=== PATIENT | male | born 1990 | race Caucasian/White ===

== ENCOUNTER 2019-11-02 18:02 | Emergency (ER) | payer SELFPAY ==
[~2019-11-02] VITALS: Ht 167.6 cm; Wt 79.4 kg
[2019-11-02] MEDS ORDERED: ACETAMINOPHEN EXTRA STRENGTH 500 MG TAB PO ONE (18:05)
[2019-11-02 18:08] VITALS: BP 132/80
--- NOTE | 2019-11-02 18:15 | NUR ---
DR. BOO EVALUATING PT
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
--- NOTE | 2019-11-02 18:24 | NUR ---
Patient discharged with v/s stable. Written and verbal after care instructions given and explained. Patient verbalized understanding. PT D/C WITH [facility] in custody. All questions addressed prior to discharge. Advised to follow up with PMD.
[2019-11-02 18:25] VITALS: BP 132/80
== END 2019-11-02 18:24 ==
LOC: MED 18:02
DX: R51 Headache (principal); Z02.89 Encounter for other administrative examinations; V49.9XXA Car occupant (driver) (passenger) injured in unspecified traffic accident, initial encounter; Y93.89 Activity, other specified; Y92.89 Other specified places as the place of occurrence of the external cause; Y99.8 Other external cause status
CPT/HCPCS: 99283